=== PATIENT | female | born 1965 | race African-American/Black ===

== ENCOUNTER 2016-07-21 08:19 | Emergency (ER) | payer OTHER ==
[2016-07-21 08:25] VITALS: BMI 34.3
--- NOTE | 2016-07-21 09:08 | PDOC ---
History of Present Illness - General History Source: Patient Exam Limitations: No Limitations - History of Present Illness Initial Comments: 07/21/16 09:14 The patient is a 50-year-old woman, accompanied by her boyfriend, with a significant past medical history of hypertension, herniated lumbar discs and fractured coccyx who presents to the emergency department via walk-in for further evaluation of back pain. Patient states that she missed a step and tripped while walking home from work [place] [address] on Tuesday. No fall. She initially did not experience any symptoms. Approximately, two days later, she was performing house chores of doing laundry and taking out the garbage, when she felt left sided non-radiating mild back pain. She admits her pain was tolerable and went to work the next day. She states that at her job, she works in a tight cubical space and she sits all day. She notes that at approximately lunchtime, her back pain was unbearable and decided to go home. She reports the same happened the next day. While at home, she noted that her pain is exacerbated when lying supine, as her pain is unbearable as soon as she wakes up in the morning or when napping. She also notes that her back pain is alleviated when walking. She spoke to her primary care physician, Dr. Jabier Davis who was concerned for a possible kidney stone. Due to her allergy of NSAIDs , she took a left over Tylenol III tablet from a tooth extraction, for which helped her significantly with her pain. She denies Fall, chest pain, radiation of pain into lower extremities She denies fever, chills, cough, shortness of breath, headaches, abdominal pain , nausea, vomiting, diarrhea, bowel or bladder incontinence/retention. She denies saddle anesthesia, paresthesias, focal weakness, sensory deficit, gait dysfunction, hematuria or dysuria Allergies: Amoxicillin. NSAIDs. Aspirin. Past Surgical History: Lap Band (2012). Left knee surgery (1985) Social History: No tobacco, ETOH and recreational drug use. Primary Care Physician: Dr. Jabier Davis [phone] <Samara Crowley - Last Filed: 07/21/16 09:32> <Patrick Tenorio - Last Filed: 07/21/16 10:54> - General Chief Complaint: Back Pain Stated Complaint: LOWER BACK PAIN Time Seen by Provider: 07/21/16 09:07 Past History <Samara Crowley - Last Filed: 07/21/16 09:32> - Past Medical History Anemia: No Asthma: No Cancer: No Cardiac Disorders: No CVA: No COPD: No CHF: No Dementia: No Diabetes: No GI Disorders: No Disorders: No HTN: Yes (Not on meds) Hypercholesterolemia: No Liver Disease: No Seizures: No Thyroid Disease: No - Surgical History Abdominal Surgery: Yes (lap band 2012) Appendectomy: No Cardiac Surgery: No Cholecystectomy: No Lung Surgery: No Neurologic Surgery: No Orthopedic Surgery: Yes (LEFT KNEE 1985) - Psycho/Social/Smoking Cessation Hx Suicidal Ideation: No Smoking History: Never smoked Have you smoked in the past 12 months: Yes Number of Cigarettes Smoked Daily: 1 Information on smoking cessation initiated: No Hx Alcohol Use: No Drug/Substance Use Hx: No Substance Use Type: None Hx Substance Use Treatment: No <Patrick Tenorio - Last Filed: 07/21/16 10:54> - Past Medical History Allergies/Adverse Reactions: Allergies Allergy/AdvReac Type Severity Reaction Status Date / Time amoxicillin [Amoxicillin] Allergy Intermediate Hives Verified 10/19/12 06:51 NSAIDS (Non-Steroidal Allergy Intermediate Hives Verified 10/19/12 06:51 Anti-Inflamma aspirin Allergy Verified 07/21/16 08:23 Home Medications: Ambulatory Orders Dextroamphetamine/Amphetamine [Adderall 10 mg Tablet] 10 mg PO ASDIR 07/21/16 Diazepam [Valium] 2 mg PO BID PRN #10 tablet MDD 2 07/21/16 Methylprednisolone [Medrol Dose [place]] 4 mg PO ASDIR #21 tablet 07/21/16 Nitrofurantoin Monohyd/M-Cryst [Macrobid -] 100 mg PO BID #14 capsule 07/21/16 Oxycodone HCl/Acetaminophen [Percocet 5-325 mg Tablet] 1 - 2 tab PO Q6H PRN #20 tab MDD 6 07/21/16 Review of Systems - Review of Systems Constitutional: No: Chills, Fever : No: Dysuria, Frequency, Flank Pain, Hematuria Musculoskeletal: Yes: Back Pain Neurological: No: Tingling, Weakness <Patrick Tenorio - Last Filed: 07/21/16 10:54> *Physical Exam - Vital Signs Last Vital Signs Temp Pulse Resp BP Pulse Ox 97.9 F 82 18 128/81 98 07/21/16 08:23 07/21/16 08:23 07/21/16 08:23 07/21/16 08:23 07/21/16 08:23 - Physical Exam Comments: 07/21/16 09:32 General: Patient is alert and in no acute distress. Speech is clear and appropriate. Head: Atraumatic and nontender. HEENT: Pupils are equal round and reactive to light, extraocular movements are intact. The tympanic membranes are clear, no hemotympanum. No facial deformity/ tenderness, no septal hematoma. The oropharynx is clear. Neck: The trachea is midline, there is no stridor. There is no midline cervical spine tenderness, full range of motion of neck. Chest: Nontender, no ecchymosis or abrasions. Heart: S1-S2, regular rate and rhythm. No murmurs. Lungs: Clear to auscultation bilaterally. Symmetric chest rise. Abdomen: Soft/nontender/nondistended. Bowel sounds are normal. There is no abdominal or flank ecchymosis. Back/Pelvis: Some midline lower lumbar tenderness to palpation. Reproducible left paraspinal discomfort without swelling or bruising. Pelvis is stable and nontender. Extremities: There is no extremity deformity or joint swelling. No focal bony tenderness throughout. 2+ distal pulses throughout. Neuro: Alert and oriented x3. Cranial nerves II through XII are intact. 5/5 flexion and extension of the hip, knee, ankle and toes, bilaterally. Finger-nose -finger is intact. No pronator drift. Skin: No abrasions/hematomas/lacerations. Psych: Affect is appropriate. <Samara Crowley - Last Filed: 07/21/16 09:32> - Vital Signs Last Vital Signs Temp Pulse Resp BP Pulse Ox 97.9 F 82 18 128/81 98 07/21/16 08:23 07/21/16 08:23 07/21/16 08:23 07/21/16 08:23 07/21/16 08:23 <Patrick Tenorio - Last Filed: 07/21/16 10:54> Medical Decision Making - Medical Decision Making 07/21/16 10:40 A portion of this note was documented by scribe services under my direction. I have reviewed the details of the note, within reason, and agree with the documentation with the following case summary and management plan written by me. 50-year-old female presents with atraumatic left low back pain for 4 days. Localized to the left low back, worse with initiation of position changes and improved with lying down or walking. No motor or sensory deficit, no fevers or chills, not relieved with Tylenol. Has history of lumbar herniated discs, but this feels different. Afebrile. Ambulating steadily. No midline spine reproducible tenderness, positive left paraspinal tenderness without soft tissue abnormality Neurologically intact with full strength, neurovascularly intact 50-year-old female with likely low back strain, low suspicion for any radiculopathy. PMD has raise concern for kidney stone versus UTI, seems atypical. Urinalysis incidentally with 10 white blood cells and 1+ leuk esterase, no blood. We'll treat empirically Pain improved after tramadol, muscle relaxant, steroids given in light of NSAID ALLERGY. No indication for emergent imaging, agrees with discharge plan on pain medications and antibiotics, has follow-up with a flight communications specialist and her primary physician Dr. Davis. Understands return criteria. <Patrick Tenorio - Last Filed: 07/21/16 10:54> *DC/Admit/Observation/Transfer - Attestations Scribe Attestion: 07/21/16 09:35 Documentation prepared by Samara Crowley, acting as medical interpreter for Patrick Tenorio MD. <Samara Crowley - Last Filed: 07/21/16 09:32> <Patrick Tenorio - Last Filed: 07/21/16 10:54> Diagnosis at time of Disposition: Low back strain Qualifiers: Encounter type: initial encounter Qualified Code(s): S39.012A - Strain of muscle, fascia and tendon of lower back, initial encounter UTI (urinary tract infection) Qualifiers: Urinary tract infection type: acute cystitis Hematuria presence: without hematuria Qualified Code(s): N30.00 - Acute cystitis without hematuria - Discharge Dispostion Disposition: HOME Condition at time of disposition: Improved - Prescriptions Prescriptions: Nitrofurantoin Monohyd/M-Cryst [Macrobid -] 100 mg PO BID #14 capsule Methylprednisolone [Medrol Dose [place]] 4 mg PO ASDIR #21 tablet Oxycodone HCl/Acetaminophen [Percocet 5-325 mg Tablet] 1 - 2 tab PO Q6H PRN #20 tab MDD 6 PRN Reason: Pain Diazepam [Valium] 2 mg PO BID PRN #10 tablet MDD 2 PRN Reason: Muscle Spasms - Referrals Referrals: Jabier Davis MD [Primary Care Provider] - - Patient Instructions Printed Discharge Instructions: DI for Low Back Pain, DI for Urinary Tract Infection (UTI) Additional Instructions: Activity as tolerated. Stay hydrated. Avoid bedrest and heavy activity, but continue normal daily activities. A urinalysis suggests a mild urine infection, but no evidence of a kidney stone. Take macrobid as prescribed as an antibiotic. Your pain is still most likely due to low back strain. Take percocet and/or valium as prescribed as needed for pain. These medications can make you light headed, so take proper precautions. Also take medrol dose pack as prescribed as a substitute for an anti-inflammatory. Continue your medications as previously prescribed by your physician. You should follow up with your flight communications specialist and Dr. Davis as soon as possible regarding today's emergency department visit. If symptoms persist beyond a week, an MRI may be necessary to further evaluate the cause. Return to the emergency department for any new or concerning symptoms, particularly persistent or worsening pain, fevers or chills or difficulty urinating, numbness or weakness. - Post Discharge Activity Work/School Note: Back to Work
[2016-07-21] MEDS ORDERED: diazePAM 2 MG TABLET PO ONE (09:16)
[2016-07-21] MEDS ORDERED: predniSONE 20 MG TABLET (UD) PO ONE (09:16)
[2016-07-21] MEDS ORDERED: traMADol HCL 50 MG TABLET PO ONE (09:16)
[2016-07-21] MEDS ORDERED: traMADol HCL 50 MG TABLET ONE (09:20)
[2016-07-21] MEDS ORDERED: diazePAM 2 MG TABLET ONE (09:20)
[2016-07-21] MEDS ORDERED: predniSONE 20 MG TABLET (UD) ONE (09:20)
[2016-07-21 09:46] LABS: URINE APPEARANCE CLEAR; URINE BILIRUBIN NEGATIVE (NEGATIVE); URINE BLOOD NEGATIVE (NEGATIVE); URINE COLOR YELLOW; URINE GLUCOSE (UA) NEGATIVE (NEGATIVE); URINE KETONE NEGATIVE (NEGATIVE); URINE NITRITE NEGATIVE (NEGATIVE); URINE PROTEIN NEGATIVE (NEGATIVE); URINE UROBILINOGEN NEGATIVE E.U./dl (0.2-1.0)
[2016-07-21 09:50] LABS: URINE LEUK ESTERASE 1+ (NEGATIVE)
[2016-07-21 09:51] LABS: URINE HYALINE CAST 1 /lpf; URINE MUCUS MODERATE; URINE RBC 1 /hpf (0-3); URINE WBC 10 /hpf (3-5)
[2016-07-21 11:11] VITALS: BP 126/82; PULSE 85; TEMP 98.1
== END 2016-07-21 11:12 | disposition home or self-care (01) ==
LOC: JERFT 08:19 → JER 08:19
DX: S39.012A Strain of muscle, fascia and tendon of lower back, initial encounter (principal); N30.00 Acute cystitis without hematuria; X50.9XXA Other and unspecified overexertion or strenuous movements or postures, initial encounter; X50.0XXA Overexertion from strenuous movement or load, initial encounter; Y93.E9 Activity, other interior property and clothing maintenance; Y92.038 Other place in apartment as the place of occurrence of the external cause
CPT/HCPCS: 81003; 81015; 84703; 87086; 99283-25

== ENCOUNTER 2020-01-17 05:21 | Day surgery (SDC) | payer OTHER ==
[2020-01-15 16:20] VITALS: BMI 38.5
--- OUTSIDE RECORDS SUMMARY | 2020-01-17 05:29 | XMS ---
:1965 Author Organization [facility] Care Team Providers Name Role Phone Todd Reed MD Unavailable Unavailable DiGiorno Unavailable DiGiorno Unavailable DiGiorno Unavailable Re-disclosure Warning The records that you are about to access may contain information from federally- assisted alcohol or drug abuse programs. If such information is present, then the following federally mandated warning applies: This information has been disclosed to you from records protected by federal confidentiality rules (42 CFR part 2). The federal rules prohibit you from making any further disclosure of this information unless further disclosure is expressly permitted by the written consent of the person to whom it pertains or as otherwise permitted by 42 CFR part 2. A general authorization for the release of medical or other information is NOT sufficient for this purpose. The Federal rules restrict any use of the information to criminally investigate or prosecute any alcohol or drug abuse patient.The records that you are about to access may contain highly sensitive health information, the redisclosure of which is protected by Article 27-F of the [facility] Public Health law. If you continue you may haveaccess to information: Regarding HIV / AIDS; Provided by facilities licensed or operated by the [facility] Office of Mental Health; or Provided by the [facility] Office for People With Developmental Disabilities. If such information is present, then the following [facility] mandated warning applies: This information has been disclosed to you from confidential records which are protected by state law. State law prohibits you from making any further disclosure of this information without the specific written consent of the person to whom it pertains, or as otherwise permitted by law. Any unauthorized further disclosure in violation of state law may result in a fine or alf sentence or both. A general authorization for the release of medical or other information is NOT sufficient authorization for further disclosure. Encounters Encounter Providers Location Date Indications Data Source(s ) Attender: Claus 01/02/2020 [facility] ([facility] 12:00:00 [facility], [facility]) EDT Office Attender: Claus 01/02/2020 12:00:00 AM ED T [facility] ([facility], ) Office Attender: Claus 01/02/2020 12:00:00 AM ED T [facility] ([facility], ) Office Inpatient Attender: Todd 09/25/2018 LEFT PATELLOFEMORAL [place] Derek 07:45:00 AM EDT - [facility] MDAdmitter: Todd 09/27/2018 Derek JIANG 10:25:00 AM EDT LEFT PATELLOFEMORAL OSTEOARTHRITIS Patient discharged. Medications Medication Brand Start Product Dose Route Administrative Pharmacy [facility] Indications Reaction Description Data Name Date Form Instructions Instructions Source(s) meloxicam MELOXI 01/01/ TABLET 30 complet MELOXI CAM [facility] (St 7.5 MG Oral CAM:31 2019 ed [facility] Tablet 1486 12:00: Medical, MELOXICAM:3 00 AM PC) 15057 EDT SUPREP 01/01/ LIQUID 1 complet SUPREP ESTEPHANIA L [facility] (St BOWEL PREP 2019 ed PREP KIT [facility] KIT:[id number] 12:00: Medica l, 00 AM PC) EDT Cholecalcif VITAMI 01/01/ TABLET 30 complet BI MIN D3 [facility] (St alejandra 1000 N 2019 ed [facility] UNT Oral D3:199 12:00: Medical , Tablet 362 00 AM PC) VITAMIN EDT [id number] LACTOSE 01/01/ complet LACTOSE MEDG EN (St POWDER: 2019 ed POWDER [facility] 12:00: Medical, 00 AM PC) EDT Levothyroxi LEVOTH 01/01/ TABLET 30 complet LEVO THYROXIN [facility] (St ne Sodium YROXIN 2019 ed E [facility] 0.1 MG Oral E:8922 12:00: Medi delia, Tablet 46 00 AM PC) LEVOTHYROXI EDT NE:[id number] TRULANCE:18 01/01/ TABLET 30 complet TRULAN CE [facility] (St 78783 2019 ed [facility] 12:00: Medical, 00 AM PC) EDT Hydrochloro HYDROC 01/01/ CAPSULE 30 complet HYD ROCHLOROT [facility] (St thiazide 25 HLOROT 2019 ed HIAZIDE-TRI A [facility] MG / HIAZID 12:00: MTERENE Medical, Triamterene E-TRIA 00 AM PC) 37.5 MG MTEREN EDT Oral E:1982 Capsule 16 HYDROCHLORO THIAZIDE-TR IAMTERENE:1 [id number] Insurance Providers Payer name Policy type Policy ID Covered Covered alliance party's Policy P sadie / Coverage alliance party ID relationship to Cheng Inf ormation type cheng [facility] [id number] SP [id number] CARE HMO/[place]/E[place] [id number] HEALTHCARE CHOICE PLUS [facility] [id number] SP [id number] 273 CARE HMO/[place] [id number] PT [id number] HEALTHCARE PPO Problems, Conditions, and Diagnoses Code Display Name Description Problem Type Effective Dates Data Source(s) K59.00 Constipation, CONSTIPATION, Problem 01/02/2020 MEDGEN ( St unspecified UNSPECIFIED 12:00:00 AM [facility] [place] Z12.11 Encounter for ENCOUNTER FOR Problem 01/02/2020 MED[facility] ( St screening for SCREENING FOR 12:00:00 AM EDT [facility] [place] [facility] ) of colon NEOPLASM OF COLON R10.10 Upper abdominal UPPER ABDOMINAL Problem 01/02/2020 MEDG EN (St pain, unspecified PAIN, UNSPECIFIED 12:00:00 AM [place] [facility] [place] [place] Surgeries/Procedures Procedure Description Date Indications Data Source(s) Documentation of current 01/02/2020 MED [facility] ([facility] medications (procedure) 12:00:00 AM EDT Romel mcduffie ) BLOOD OCCULT PEROXIDASE 01/02/2020 MEDG EN ([facility] ACTV QUAL OTHER SOURCES 12:00:00 AM EDT Romel mcduffie ) Results ID Date Data Source [id number] 01/12/2020 10:00:00 AM EDT [facility] Name Value Range Interpretation Description Data Sup porting Code Source(s) Document(s ) SARS [facility] coronavirus 2 RNA This lab was ordered by [facility] and reported by [facility]. Procedure Social History Code Duration Value Status Description Data Source(s ) Smoking 01/02/2020 Born in [place] Born [place] 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 [facility], unit manager rn unit manager rn Occasional PC) Occasional Cigarette 2-3 Cigarette 2-3 Glasses of wine qd Glasses of wine No Drug use qd No Drug use Smoking 01/02/2020 Unknown if ever completed Unknown if ever MEDG EN (St 12:00:00 AM EDT smoked smoked Samantha Sd socorro ) Vital Signs ID Date Data Source UNK Name Value Range Interpretation Code Description Data Source(s) Heart rate 75 /min 75 /min [facility] ([facility] , ) Inhaled oxygen 99 % 99 % [facility] ([facility], ) Body mass index 38.2 kg/m2 38.2 kg/m2 MED[facility] (S t (BMI) [Ratio] [facility] [place], ) Diastolic blood 102 mm[Hg] 102 mm[Hg] MEDGEN (S t pressure [facility] , ) Systolic blood 164 mm[Hg] 164 mm[Hg] MEDGEN ( pressure [facility] , ) Body weight 199 lb 199 lb [facility] ([facility] , ) Body height 60.5 in 60.5 in [facility] ([facility] , )
[2020-01-17 12:00] VITALS: TEMP 98.2
[2020-01-17 12:50] VITALS: BP 131/68; PULSE 67
--- NOTE | 2020-01-18 18:12 | PATH ---
Surgical Pathology Report Patient Name: JACQUES WILKINS [facility]. Rec. #: [id number] /Age/Gender: 1965 (Age: 54) / F Account: [id number] Location: U-ENDOSCOPY Taken: 01/17/2020 Received: 01/17/2020 Reported: 01/18/2020 Physicians: Claus Bustamante D.O. Specimen(s) Received A: HOT SNARE POLYPECTOMY PROXIMAL TRANSVERSE COLON B: POLYP SIGMOID COLON C: RECTAL NODULE Clinical History Screening Postoperative diagnosis: Colon polyps, hemorrhoids Final Diagnosis A. PROXIMAL TRANSVERSE COLON, HOT SNARE POLYPECTOMY: TUBULAR ADENOMA. B. SIGMOID COLON, POLYP, BIOPSY: HYPERPLASTIC POLYP. C. RECTUM NODULE, BIOPSY: COLONIC MUCOSA WITH MILD SUPERFICIAL HYPERPLASTIC FEATURES. Electronically Signed Eloisa Cooper M.D. Gross Description A. Received in formalin, labeled "hot snare polypectomy proximal transverse colon" are 3 timmons, irregular portions of soft tissue measuring 0.3-0.5 cm. in greatest dimension. The specimens are submitted in toto in one cassette. B. Received in formalin, labeled "polyp sigmoid colon" is a timmons, irregular portion of soft tissue measuring 0.2 cm. in greatest dimension. The specimen is submitted in toto in one cassette. C. Received in formalin, labeled "rectal nodule" are 2 timmons, irregular portions of soft tissue measuring 0.1 and 0.2 cm. in greatest dimension. The specimens are submitted in toto in one cassette. MLSZ/01/17/2020 sanml/01/17/2020
== END 2020-01-17 13:05 | disposition home or self-care (01) ==
LOC: JASU-ENDO 05:21
PROVIDERS: ATTEND Internal Medicine Gastroenterology
PROC: 0DBP8ZX Excision of Rectum, Via Natural or Artificial Opening Endoscopic, Diagnostic (ICD-10-PCS; 2020-01-17)
PROC: 0DBN8ZX Excision of Sigmoid Colon, Via Natural or Artificial Opening Endoscopic, Diagnostic (ICD-10-PCS; 2020-01-17)
PROC: 0DBL8ZX Excision of Transverse Colon, Via Natural or Artificial Opening Endoscopic, Diagnostic (ICD-10-PCS; principal; 2020-01-17 11:02)
DX: Z12.11 Encounter for screening for malignant neoplasm of colon (principal); D12.3 Benign neoplasm of transverse colon; D12.5 Benign neoplasm of sigmoid colon; D12.8 Benign neoplasm of rectum; I10 Essential (primary) hypertension; E03.9 Hypothyroidism, unspecified; K63.89 Other specified diseases of intestine; K64.8 Other hemorrhoids
CPT/HCPCS: 88305-TC

== ENCOUNTER 2021-02-10 04:49 | Day surgery (SDC) | payer OTHER ==
[2021-02-05 16:03] VITALS: BMI 35.3
[2021-02-10 11:10] VITALS: TEMP 97.3
[2021-02-10 12:33] VITALS: BP 147/80; PULSE 62
== END 2021-02-10 12:04 | disposition home or self-care (01) ==
LOC: JASU-ENDO 04:49
PROVIDERS: ATTEND Internal Medicine Gastroenterology
PROC: 0DJD8ZZ Inspection of Lower Intestinal Tract, Via Natural or Artificial Opening Endoscopic (ICD-10-PCS; principal; 2021-02-10 10:45)
DX: K62.89 Other specified diseases of anus and rectum (principal); K64.8 Other hemorrhoids